=== PATIENT | female | born 1935 | race African-American/Black ===

== ENCOUNTER → 2018-04-30 | Outpatient (CLI) | payer MEDICARE ==
--- NOTE | 2018-04-30 18:22 | RADIOLOGY REPORT (SQ) ---
EXAM DESCRIPTION: ANKLE LEFT COMPLETE COMPLETED DATE/TIME: 04/30/2018 5:41 pm REASON FOR STUDY: M25.572 PAIN IN LEFT ANKLE AND JOINTS OF LEFT FOOT M79.605 PAIN IN LEFT LEG M79.6 01 PAIN IN RIGHT ARM M25.572 PAIN IN LEFT ANKLE AND JOINTS OF LEFT FOOT COMPARISON: None. NUMBER OF VIEWS: Three views. TECHNIQUE: AP, lateral, and oblique radiographic images acquired of the left ankle. LIMITATIONS: None. FINDINGS: MINERALIZATION: Normal. BONES: No acute fracture or dislocation. No worrisome bone lesions. JOINTS: No effusions. SOFT TISSUES: Mild soft tissue swelling. OTHER: No other significant finding. IMPRESSION: Soft tissue swelling with no fracture. TECHNICAL DOCUMENTATION: JOB ID: [id number] [employer]- All Rights Reserved Reading location - IP/workstation name: [email or web address]
--- NOTE | 2018-04-30 18:23 | RADIOLOGY REPORT (SQ) ---
EXAM DESCRIPTION: TIBIA FIBULA LEFT COMPLETED DATE/TIME: 04/30/2018 5:41 pm REASON FOR STUDY: M75.572 PAIN IN LEFT ANKLE AND JOINTS OF LEFT FOOT M79.605 PAIN IN LEFT LEG M79.6 01 PAIN IN RIGHT ARM M25.572 PAIN IN LEFT ANKLE AND JOINTS OF LEFT FOOT COMPARISON: None. NUMBER OF VIEWS: Two views. TECHNIQUE: Two radiographic images acquired of the left tibia and fibula to include the knee and ank le in at least one projection. LIMITATIONS: None. FINDINGS: MINERALIZATION: Normal. BONES: Left knee arthroplasty. No acute osseous abnormality. SOFT TISSUES: No obvious swelling or foreign body. OTHER: No other significant finding. IMPRESSION: NEGATIVE STUDY OF THE LEFT TIBIA AND FIBULA. NO RADIOGRAPHIC EVIDENCE OF ACUTE INJURY. TECHNICAL DOCUMENTATION: JOB ID: [id number] [employer]- All Rights Reserved Reading location - IP/workstation name: [email or web address]
--- NOTE | 2018-04-30 18:33 | RADIOLOGY REPORT (SQ) ---
EXAM DESCRIPTION: VENOUS UNILATERAL LOWER COMPLETED DATE/TIME: 04/30/2018 6:20 pm REASON FOR STUDY: LLE SWELLING M79.605 PAIN IN LEFT LEG M79.601 PAIN IN RIGHT ARM M25.572 PAIN IN LEFT ANKLE AND JOINTS OF LEFT FOOT COMPARISON: None. TECHNIQUE: Dynamic and static joy scale and color images acquired of the left leg venous system. Se lected spectral images acquired with additional compression and augmentation maneuvers. The contralat eral common femoral vein and saphenofemoral junction were also imaged. Images stored on PACS. LIMITATIONS: None. FINDINGS: COMMON FEMORAL: Normal phasicity, compression and augmentation. No visualized echogenic ma terial on joy scale. No defects on color images. FEMORAL: Normal compression and augmentation. No visualized echogenic material on joy scale. No defe cts on color images. POPLITEAL: Normal compression, augmentation. No visualized echogenic material on joy scale. No defec ts on color images. CALF VESSELS: Normal compression, augmentation. No visualized echogenic material on joy scale. No de fects on color images. GSV and SSV: Normal compression, augmentation. No visualized echogenic material on joy scale. No def ects on color images. ANY DEEP VENOUS INSUFFICIENCY: Not evaluated. ANY EVIDENCE OF POPLITEAL CYST: No. OTHER: No other significant finding. CONTRALATERAL COMMON FEMORAL VEIN AND SAPHENOFEMORAL JUNCTION: Normal phasicity, compression and augmentation. No visualized echogenic material on joy scale. No de fects on color images. IMPRESSION: NO EVIDENCE DVT OR SVT IN THE LEFT LEG. TECHNICAL DOCUMENTATION: JOB ID: [id number] [employer]- All Rights Reserved Reading location - IP/workstation name: [email or web address]
[2018-04-30 20:48] LABS: ABSOLUTE EOSINOPHILS # (AUTO) 0.2 10^3/uL (0.0-0.6); ABSOLUTE LYMPHOCYTES (AUTO) 2.2 10^3/uL (0.5-4.7); ABSOLUTE MONOCYTES (AUTO) 0.8 10^3/uL (0.1-1.4); ABSOLUTE NEUT (AUTO) 2.9 10^3/uL (1.7-8.2); BASOPHILS % (AUTO) 0.7 % (0-2); EOSINOPHILS % (AUTO) 3.2 % (0-6); HEMATOCRIT 31.2 % (36.0-47.0); HEMOGLOBIN 10.4 g/dL (12.0-15.5); LYMPHOCYTES % (AUTO) 35.7 % (13-45); MEAN CORPUSCULAR HGB CONC 33.3 g/dL (32.0-36.0); MEAN CORPUSCULAR VOLUME 93 fl (80-97); MONOCYTES % (AUTO) 12.6 % (3-13); PLATELET COUNT 200 10^3/uL (150-450); RED BLOOD COUNT 3.35 10^6/uL (3.72-5.28); RED CELL DISTRIBUTION WIDTH 14.7 % (11.5-14.0); SEGMENTED NEUTROPHILS % (AUTO) 47.8 % (42-78); TOTAL CELLS COUNTED % (AUTO) 100 %; WHITE BLOOD COUNT 6.1 10^3/uL (4.0-10.5)
[2018-04-30 21:10] LABS: ALANINE AMINOTRANSFERASE 33 U/L (9-52); ALKALINE PHOSPHATASE 102 U/L (38-126); ASPARTATE AMINO TRANSFERASE 26 U/L (14-36); BILIRUBIN,DIRECT 0.1 mg/dL (0.0-0.4); BILIRUBIN,TOTAL 0.6 mg/dL (0.2-1.3); BLOOD UREA NITROGEN 42 mg/dL (7-20); CALCIUM 9.4 mg/dL (8.4-10.2); CHOLESTEROL 142.63 mg/dL (0-200); GLUCOSE 88 mg/dL (75-110); POTASSIUM 4.3 mmol/L (3.6-5.0); TOTAL PROTEIN 7.1 g/dL (6.3-8.2); TRIGLYCERIDES 101 mg/dL (<150)
[2018-04-30 21:15] LABS: ANION GAP 8 (5-19); CARBON DIOXIDE 29 mmol/L (22-30); CHLORIDE 104 mmol/L (98-107); SODIUM 141.2 mmol/L (137-145)
[2018-04-30 21:21] LABS: DIRECT LDL 56 mg/dL (<100)
[2018-05-02 11:41] LABS: CREATININE URINE 133.7 mg/dL (Not Estab.); MICROALBUMIN URINE <3.0 ug/mL (Not Estab.)
== END ==
LOC: SP 19:10
PROVIDERS: ATTEND Family Medicine Geriatric Medicine
DX: M79.605 Pain in left leg (principal); M79.601 Pain in right arm; M25.572 Pain in left ankle and joints of left foot; E11.8 Type 2 diabetes mellitus with unspecified complications
CPT/HCPCS: 36415; 80053; 80061; 82043; 82306; 82570; 82607; 83036; 84443; 85025; 93971

== ENCOUNTER → 2018-05-16 | Outpatient (CLI) | payer MEDICARE ==
[2018-05-16 14:25] LABS: URIC ACID 6.6 mg/dL (2.5-7.5)
== END ==
LOC: LAB 13:29
PROVIDERS: ATTEND Family Medicine Geriatric Medicine
DX: D64.9 Anemia, unspecified (principal); M25.552 Pain in left hip; Z79.899 Other long term (current) drug therapy
CPT/HCPCS: 36415; 82728; 83540; 83550; 84550

== ENCOUNTER → 2018-09-04 | Outpatient (CLI) | payer MEDICARE, MEDICAID ==
--- NOTE | 2018-09-04 15:00 | RADIOLOGY REPORT (SQ) ---
EXAM DESCRIPTION: U/S RETROPERITON (RENAL/AORTA) COMPLETED DATE/TIME: 09/04/2018 2:40 pm REASON FOR STUDY: OTHER SPECIFIED DISORDERS OF KIDNEY AND URETER RENAL MASS (N28.89) R06.02 SHORTNE SS OF BREATH N28.89 OTHER SPECIFIED DISORDERS OF KIDNEY AND URETER COMPARISON: None. TECHNIQUE: Dynamic and static grayscale images acquired of the kidneys and bladder and recorded on P ACS. Additional selected color Doppler and spectral images recorded. LIMITATIONS: None. FINDINGS: RIGHT KIDNEY: Normal size, 9 cm. Normal echogenicity. No solid or suspicious masses. No hy dronephrosis. No calcifications. LEFT KIDNEY: Normal size, 9.9 cm. Normal echogenicity. No solid or suspicious masses. There is a 14 x 18 x 15 mm cyst. No hydronephrosis. No calcifications. BLADDER: Urinary jets were not seen. No bladder mass is present. The bladder is incompletely filled . OTHER FINDINGS: No other significant finding. IMPRESSION: NORMAL RENAL AND BLADDER ULTRASOUND. TECHNICAL DOCUMENTATION: JOB ID: [id number] [employer]- All Rights Reserved Reading location - IP/workstation name: [email or web address]
[2018-09-04 15:42] LABS: ABSOLUTE EOSINOPHILS # (AUTO) 0.1 10^3/uL (0.0-0.6); ABSOLUTE LYMPHOCYTES (AUTO) 1.3 10^3/uL (0.5-4.7); ABSOLUTE MONOCYTES (AUTO) 0.7 10^3/uL (0.1-1.4); ABSOLUTE NEUT (AUTO) 3.7 10^3/uL (1.7-8.2); BASOPHILS % (AUTO) 0.5 % (0-2); EOSINOPHILS % (AUTO) 1.8 % (0-6); HEMATOCRIT 33.5 % (36.0-47.0); HEMOGLOBIN 11.2 g/dL (12.0-15.5); LYMPHOCYTES % (AUTO) 21.8 % (13-45); MEAN CORPUSCULAR HEMOGLOBIN 32.5 pg (27.0-33.4); MEAN CORPUSCULAR HGB CONC 33.3 g/dL (32.0-36.0); MEAN CORPUSCULAR VOLUME 98 fl (80-97); MONOCYTES % (AUTO) 11.7 % (3-13); PLATELET COUNT 162 10^3/uL (150-450); RED BLOOD COUNT 3.44 10^6/uL (3.72-5.28); RED CELL DISTRIBUTION WIDTH 14.5 % (11.5-14.0); SEGMENTED NEUTROPHILS % (AUTO) 64.2 % (42-78); TOTAL CELLS COUNTED % (AUTO) 100 %; WHITE BLOOD COUNT 5.8 10^3/uL (4.0-10.5)
--- NOTE | 2018-09-04 17:43 | XCELERA REPORT ---
[address] [address] Transthoracic Echocardiogram Report Name: MARK HAMILTON Age: 83 yrs Gender: Female : 1935 Patient Status: Outpatient Patient Location: RAD Study Date: 09/04/2018 02:44 PM Height: 61 in Weight: 184 lb BSA: 1.8 m2 Reason For Study: SOB Ordering Physician: ELIZABETH RANDHAWA Performed By: Mikaela Rowe Interpretation Summary Very poor images, technian said lung artefacts. Basic problem is still this GE machine. Min post pericardial effusion. Mild calcified aortic root, ? enlarged. Mild calcified AV , uncertain if normal 3 cusps AV. No , probably trace AR. Mild mitral annular calcification, normal leaflets, no MS, no MVP, No MR, and normal LA. Mild LVH with LVEF visually 60% , and there is stage I LVDD, no LV enlargement. Poor PSAX, Incomplete LV segmental analysis. The IVS, Post Wall, Lateral wall, Ant wall and Inferior wall probably normal. 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 MMode/2D Measurements & Calculations RVDd: 2.1 cm LVIDd: 3.9 cm FS: 27.2 % Ao root diam: 2.9 cm IVSd: 0.80 cm LVIDs: 2.9 cm EDV(Teich): Ao root area: LVPWd: 1.1 cm 67.8 ml ESV(Teich): 6.6 cm2 31.5 ml EF(Teich): 53.6 % EDV(MOD-sp4): SV(MOD-sp4): 78.2 ml 46.7 ml ESV(MOD-sp4): 31.5 ml EF(MOD-sp4): 59.7 % Doppler Measurements & Calculations MV E max wilber: MV dec slope: Ao V2 max: AI max wilber: 70.3 cm/sec 158.2 cm/sec 407.8 cm/sec MV A max wilber: 260.3 cm/sec2 Ao max PG: AI max P.5 mmHg 91.4 cm/sec MV dec time: 10.0 mmHg AI dec slope: MV E/A: 0.77 0.27 sec 260.6 cm/sec2 AI P1/2t: 458.4 msec LV V1 max PG: PA V2 max: TR max wilber: 3.5 mmHg 71.6 cm/sec 257.0 cm/sec LV V1 max: PA max P.1 mmHg TR max P.5 cm/sec 26.4 mmHg : ELIZABETH RANDHAWA > Devan Vasques
== END ==
LOC: RAD 13:54
PROVIDERS: ATTEND Family Medicine Geriatric Medicine
DX: N28.89 Other specified disorders of kidney and ureter (principal); D50.9 Iron deficiency anemia, unspecified; R06.02 Shortness of breath
CPT/HCPCS: 36415; 76770; 85025; 93306

== ENCOUNTER → 2018-10-20 | Outpatient (CLI) | payer MEDICARE, MEDICAID ==
[2018-10-20 10:07] LABS: ABSOLUTE EOSINOPHILS # (AUTO) 0.1 10^3/uL (0.0-0.6); ABSOLUTE LYMPHOCYTES (AUTO) 1.8 10^3/uL (0.5-4.7); ABSOLUTE MONOCYTES (AUTO) 0.7 10^3/uL (0.1-1.4); ABSOLUTE NEUT (AUTO) 2.8 10^3/uL (1.7-8.2); BASOPHILS % (AUTO) 0.6 % (0-2); EOSINOPHILS % (AUTO) 2.6 % (0-6); LYMPHOCYTES % (AUTO) 33.4 % (13-45); MEAN CORPUSCULAR HEMOGLOBIN 32.3 pg (27.0-33.4); MEAN CORPUSCULAR HGB CONC 33.4 g/dL (32.0-36.0); MEAN CORPUSCULAR VOLUME 97 fl (80-97); PLATELET COUNT 170 10^3/uL (150-450); SEGMENTED NEUTROPHILS % (AUTO) 51.4 % (42-78); TOTAL CELLS COUNTED % (AUTO) 100 %; WHITE BLOOD COUNT 5.5 10^3/uL (4.0-10.5)
== END ==
LOC: LAB 09:56
PROVIDERS: ATTEND Family Medicine Geriatric Medicine
DX: Z79.899 Other long term (current) drug therapy (principal); E78.5 Hyperlipidemia, unspecified; I10 Essential (primary) hypertension
CPT/HCPCS: 36415; 85025